=== PATIENT | female | born 2000 | race Caucasian/White ===

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

== ENCOUNTER → 2025-02-21 | Outpatient (CLI) | payer MEDICAID, SELFPAY ==
--- NOTE | 2025-02-21 13:26 | RAD_ITS ---
PROCEDURE: WRIST MIN 3 VIEWS; HAND MIN 3 VIEWS 02/21/2025 REASON FOR EXAM: PAIN TECHNIQUE: WRIST MIN 3 VIEWS; HAND MIN 3 VIEWS COMPARISON: None. RAD/Hand Min 3 Views IMPRESSION: No significant arthritic process or joint narrowing is seen. No significant ulnar variance is evident. Satisfactory carpal and hand alignment is noted throughout. No acute fracture or dislocation is seen. If clinical concern persists, short- term follow-up imaging may be obtained to rule out a currently occult fracture. Reading Location: [id number]
--- NOTE | 2025-02-21 13:26 | RAD_ITS ---
PROCEDURE: WRIST MIN 3 VIEWS; HAND MIN 3 VIEWS 02/21/2025 REASON FOR EXAM: PAIN TECHNIQUE: WRIST MIN 3 VIEWS; HAND MIN 3 VIEWS COMPARISON: None. RAD/Wrist min 3 Views IMPRESSION: No significant arthritic process or joint narrowing is seen. No significant ulnar variance is evident. Satisfactory carpal and hand alignment is noted throughout. No acute fracture or dislocation is seen. If clinical concern persists, short- term follow-up imaging may be obtained to rule out a currently occult fracture. Reading Location: [facility]
== END | disposition home or self-care (01) ==
LOC: MTRAD 13:26
PROVIDERS: Referring Provider Physician Assistant; Visit Provider Physician Assistant
DX: M79.642 Pain in left hand (principal); M25.532 Pain in left wrist
CPT/HCPCS: 73110; 73130